=== PATIENT | male | born 1980 | race Caucasian/White ===

== ENCOUNTER 2018-10-30 08:56 | Emergency (ER) | payer OTHER ==
[~2018-10-30] VITALS: Ht 160 cm; Wt 90.7 kg
--- NOTE | 2018-10-30 08:58 | NUR ---
PATIENT ABULATED WITH CHP TO BED 8.
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
[2018-10-30 09:02] VITALS: BP 128/79
[2018-10-30] MEDS ORDERED: BLOOD GLUCOSE MONITORING 1 DEV DEV FS ONE (09:40)
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
== END 2018-10-30 09:47 ==
LOC: MED 08:56
DX: Z04.1 Encounter for examination and observation following transport accident (principal); I10 Essential (primary) hypertension; V43.52XA Car driver injured in collision with other type car in traffic accident, initial encounter; Y93.89 Activity, other specified; Y92.410 Unspecified street and highway as the place of occurrence of the external cause; Y99.8 Other external cause status
CPT/HCPCS: 82948; 99283